=== PATIENT | male | born 1995 | race African-American/Black ===

== ENCOUNTER 2017-06-30 21:19 | Emergency (ER) | payer MEDICAID ==
[~2017-06-30] VITALS: Ht 175.3 cm; Wt 63.5 kg
[2017-06-30 21:29] VITALS: BP_SYST 107
--- NOTE | 2017-06-30 21:39 | NUR ---
Patient triaged and placed in waiting room. VSS and patient appears in no acute distress at this time. Accompanied by self, awaiting available bed, and MD notified of need for MSE.
--- NOTE | 2017-06-30 21:48 | NUR ---
Patient to ER bed 3 to gown for evaluation. Side rails up. Report given to KEYSHAWN ARAUZ.
--- NOTE | 2017-06-30 21:55 | NUR ---
Pt brought in by girlfriend in stable condition. Pt stated that he had mandible surgery on 06/06/17 and "can't find doctor" to do post op procedures or take out screws. Pt was previously informed by staff to return to [facility] for post op follow up visits. Pt denies pain at this time. No acute distress noted, will continue to monitor.
--- NOTE | 2017-06-30 22:10 | NUR ---
ER at bedside examining patient.
[2017-06-30 22:24] VITALS: BP_SYST 107
--- NOTE | 2017-06-30 22:24 | NUR ---
Patient given written and verbal discharge instructions and verbalizes understanding. ER MD TAYLOR discussed with patient the results and treatment provided. Patient in stable condition. ID arm band removed. NO Rx given. Patient educated on pain management and to follow up with PMD. Pain Scale 0/10. Opportunity for questions provided and answered. Medication side effect fact sheet provided.
== END 2017-06-30 22:24 | disposition home or self-care (01) ==
LOC: SED 21:19
DX: T81.89XA Other complications of procedures, not elsewhere classified, initial encounter (principal); S00.511A Abrasion of lip, initial encounter; X58.XXXA Exposure to other specified factors, initial encounter; Y93.89 Activity, other specified; Y92.89 Other specified places as the place of occurrence of the external cause; Y99.8 Other external cause status
CPT/HCPCS: 99281